=== PATIENT | male | born 1975 | race Caucasian/White ===

== ENCOUNTER 2023-04-17 14:49 | Inpatient (IN) | payer BC, MEDICAID ==
[~2023-04-17] VITALS: Ht 172.7 cm; Wt 93.2 kg
[2023-04-17] VITALS (22 sets, daily range): BP systolic 151–193; BP diastolic 90–116; PULSE 86–95; RESP 16–29; TEMP 97.8; O2SAT 93–98
[~2023-04-17 14:49] MED LIST: niCARDipine in NS 40mg/200ml (0.2mg/ml) IVPB IV ONE; sod chloride 0.9% 10ml flush syringe IV ONE; tenecteplase 50mg kit IV ONE
[2023-04-17] MEDS ORDERED: hydrALAZINE 20mg/ml inj. IV ONE (15:25)
[2023-04-17 16:11] LABS: BASOPHILS # (AUTO) 0.1 X10'3 (0-0.2); BASOPHILS % (AUTO) 0.7 % (0-1); EOSINOPHILS # (AUTO) 0.1 X10'3 (0-0.9); EOSINOPHILS % (AUTO) 0.8 % (0-6); HEMATOCRIT 40.9 % (42.0-52.0); HEMOGLOBIN 13.5 g/dl (14.0-17.9); LYMPHOCYTES % (AUTO) 17.8 % (21-51); MEAN CORPUSCULAR HGB CONC 33.1 g/dL (33.0-36.5); MEAN CORPUSCULAR VOLUME 90.7 FL (78-98); MEAN PLATELET VOLUME 9.5 FL (7.4-10.4); MONOCYTES # (AUTO) 0.7 X10'3 (0-0.9); NEUTROPHILS # (AUTO) 8.6 X10'3 (1.8-7.7); NEUTROPHILS % (AUTO) 74.7 % (42-75); PLATELET COUNT 299 X10'3 (140-440); RED BLOOD COUNT 4.51 X10'6 (4.70-6.10); RED CELL DISTRIBUTION WIDTH 13.8 % (11.5-14.5); WHITE BLOOD COUNT 11.5 X10'3 (4.5-11.0)
[2023-04-17] MEDS ORDERED: metoclopramide 5 mg/ml inj IV ONE (16:15)
[2023-04-17 16:23] LABS: ALANINE AMINOTRANSFERASE 33 U/L (12-78); ALBUMIN 3.6 G/DL (3.4-5.0); ALBUMIN/GLOBULIN RATIO 0.8 (1.1-1.5); ALKALINE PHOSPHATASE 128 IU/L (46-116); ANION GAP 10 (8-16); ASPARTATE AMINO TRANSFERASE 29 U/L (10-37); BILIRUBIN,TOTAL 1.4 MG/DL (0.1-1.0); BLOOD UREA NITROGEN 32 MG/DL (7-18); BUN/CREATININE RATIO 16.3 (10.0-20.0); CALCIUM 8.7 MG/DL (8.5-10.1); CHLORIDE 101 MMOL/L (99-107); CREATININE 1.96 MG/DL (0.60-1.10); GLUCOSE 187 MG/DL (70-104); POTASSIUM 3.1 MMOL/L (3.5-5.1); SODIUM 137 MMOL/L (135-145); TOTAL CARBON DIOXIDE 25.9 MMOL/L (24-32); TOTAL PROTEIN 8.2 G/DL (6.4-8.2); eCRCL 45 ML/MIN; eGFR 37 ML/MIN
[2023-04-17] MEDS ORDERED: niCARDipine-NS 40mg/200ml IVPB 200 ML IV SCH (16:25)
[2023-04-17 16:34] LABS: PRO BRAIN NATRIURETIC PEPTIDE 10630 PG/ML (0-125)
[2023-04-17] MEDS ORDERED: metoprolol tartrate 1mg/ml inj IV ONE (16:35)
[2023-04-17] MEDS ORDERED: metoprolol tartrate 25mg tablet PO ONE (16:35)
[2023-04-17] MEDS: niCARDipine-NS 40mg/200ml IVPB IV SCH (16:42)
[2023-04-17] MEDS ORDERED: tenecteplase-TNKase inj 10 ML IV ONE (16:50)
[2023-04-17] MEDS ORDERED: iohexol 350MG/ML 100ml bottle IV ONE (17:04)
[2023-04-17] MEDS ORDERED: acetaminophen 325mg tablet PO PRN ×2 (18:45)
[2023-04-17] MEDS ORDERED: ondansetron/PF 4mg/2ml inj IV PRN (18:45)
[2023-04-17] MEDS ORDERED: magnesium hydroxide 30ml (MOM) UD suspension PO PRN (18:45)
[2023-04-17] MEDS ORDERED: morphine 4 MG/ML inj SYRINge IV PRN (18:45)
[2023-04-17] MEDS ORDERED: morphine 2 MG/ML inj. syringe IV PRN (18:45)
[2023-04-17 19:31] LABS: BILIRUBIN,URINE NEGATIVE (Neg); CLARITY,URINE CLEAR (Clear); COLOR,URINE STRAW (Yellow); GLUCOSE, URINE 100 mg/dl (Neg); KETONES,URINE NEGATIVE (Neg); LEUKOCYTE ESTERASE ,URINE NEGATIVE (Neg); NITRITES, URINE NEGATIVE (Neg); OCCULT BLOOD,URINE TRACE-INTACT (Neg); PROTEIN,URINE 100 mg/dl (Neg); UROBILINOGEN,URINE 0.2 E.U/dL (0.2-1.0)
[2023-04-17 19:32] LABS: UA COLLECTION TYPE CLN CATCH MIDSTREAM
[2023-04-17 19:54] LABS: BACTERIA,URINE NONE SEEN /HPF (Neg); MUCUS STRANDS NONE SEEN /LPF (Neg); RBC,URINE 0-2 /HPF (0-2); SQUAMOUS EPITHELIAL CELL,UR FEW /LPF (FEW); WBC,URINE 0-4 /HPF (0-4)
[2023-04-17] MEDS ORDERED: metoprolol tartrate 25mg tablet PO SCH (22:00)
[2023-04-18] VITALS (8 sets, daily range): BP systolic 119–185; BP diastolic 69–109; PULSE 94–101; RESP 22–26; O2SAT 93–98
[2023-04-18 01:34] LABS: APTT 31 SECONDS (22-32); FIBRINOGEN 485 MG/DL (177-424); INR 1.1 INR; PROTHROMBIN TIME 11.4 SECONDS (9.0-12.0)
[2023-04-18] MEDS: niCARDipine-NS 40mg/200ml IVPB IV SCH ×2 (01:41→02:16)
[2023-04-18] MEDS ORDERED: labetalol 20mg/4ml (5mg/ml) syringe IV PRN (01:45)
== END 2023-04-18 02:50 | disposition critical access hospital (66) | DRG 64 ==
LOC: ER 14:50 → ICU 2S 20:24
PROVIDERS: ADMIT Internal Medicine Critical Care Medicine; ATTEND Internal Medicine Critical Care Medicine
PROC: B3251ZZ Computerized Tomography (CT Scan) of Bilateral Common Carotid Arteries using Low Osmolar Contrast (ICD-10-PCS; principal; 2023-04-17)
PROC: B32G1ZZ Computerized Tomography (CT Scan) of Bilateral Vertebral Arteries using Low Osmolar Contrast (ICD-10-PCS; 2023-04-17)
PROC: B32R1ZZ Computerized Tomography (CT Scan) of Intracranial Arteries using Low Osmolar Contrast (ICD-10-PCS; 2023-04-17)
PROC: B3281ZZ Computerized Tomography (CT Scan) of Bilateral Internal Carotid Arteries using Low Osmolar Contrast (ICD-10-PCS; 2023-04-17)
DX: I61.5 Nontraumatic intracerebral hemorrhage, intraventricular (principal); G93.6 Cerebral edema; I16.1 Hypertensive emergency; N17.9 Acute kidney failure, unspecified; R29.703 NIHSS score 3; G83.34 Monoplegia, unspecified affecting left nondominant side
CPT/HCPCS: 36415; 70450; 70496; 70498; 71045; 80053; 81001; 82140; 82948; 83880; 84484; 85025; 85384; 85610; 85730; 87081; 99285; A4615; A6213; G0378; J0360; J3101; J3490; Q9967